=== PATIENT | male | born 1960 | race Caucasian/White ===

== ENCOUNTER 2025-05-30 07:20 | Inpatient (IN) | payer OTHER, MEDICARE ==
[~2025-05-30] VITALS: Ht 180.3 cm; Wt 94.6 kg
[2025-05-30] VITALS (26 sets, daily range): BP systolic 109–192; BP diastolic 62–105
[~2025-05-30 07:20] MED LIST: AMLO5 PO; BENA20 PO; CHLO25B PO; CYCL10 PO; METO50ER PO; MOME.1TO TOP
[2025-05-30] MEDS ORDERED: FentaNYL Citrate 50 MCG/ML 5 ML Injection ONE (07:37)
[2025-05-30] MEDS ORDERED: Midazolam HCl 1MG / ML 2ML Vial ONE (07:37)
[2025-05-30] MEDS ORDERED: Rocuronium Bromide 10 MG/ML 5ML Injection IV ONE (07:37)
[2025-05-30] MEDS ORDERED: Bupivacaine 0.25% Epi 1:200000 30 ML Vial ONE (07:41)
[2025-05-30] MEDS ORDERED: CeFAZolin Sodium 2,000 MG in NS 100 ML IV SCH (08:25)
--- NOTE | 2025-05-30 09:08 | NUR ---
History, Chart, Medications and Allergies reviewed before start of procedure. Patient up to Ambulate independently. Gait steady. Pre-Op teaching done. Pt verbalizes understanding. Patient confirms NPO status and agrees with scheduled surgery. Patient reports completing Chlorhexadine shower X2 prior to admission to hospital. Surgical site prepped with 2% Chlorhexidine cloth wipe.
[2025-05-30] MEDS ORDERED: Labetalol HCL 5 MG/ML 4ML Injection (Single Dose) IV PRN (09:55)
[2025-05-30] MEDS ORDERED: Ondansetron HCl 2 MG / ML 2ML Vial IV PRN ×2 (09:55→11:45)
[2025-05-30] MEDS ORDERED: Albuterol 2.5 MG/3 ML VIAL INH PRN (09:55)
[2025-05-30] MEDS ORDERED: HYDROmorphone HCl/Pf 1MG SYR IV PRN (10:00)
[2025-05-30] MEDS ORDERED: FentaNYL Citrate 50 MCG/ML 2 ML Injection IV PRN ×3 (10:00)
[2025-05-30] MEDS ORDERED: HYDROmorphone HCl/Pf 1MG SYR ONE ×2 (10:17→13:07)
[2025-05-30] MEDS ORDERED: Sugammadex Sodium 200 MG/2ML SDV (100 MG/ML) ONE (11:45)
[2025-05-30] MEDS ORDERED: Morphine Sulfate 4 MG/1 ML Injection IV PRN (11:45)
[2025-05-30] MEDS ORDERED: OxyCODONE 5 mg/Acetamin 325 mg TABLET PO PRN (11:45)
[2025-05-30] MEDS ORDERED: Labetalol HCL 5 MG/ML 4ML Injection (Single Dose) ONE (12:26)
[2025-05-30] MEDS ORDERED: FentaNYL Citrate 50 MCG/ML 2 ML Injection ONE (12:26)
--- NOTE | 2025-05-30 17:27 | NUR ---
SUMMARY NO ACUTE CHANGES SINCE ARRIVING TO UNIT FROM PACU. PT REPORTS PAIN TOLERABLE. IV FLUIDS INFUSING PER ORDERS. TOLERATING CLEAR LIQUID DIET. KENYON PUTTING OUT DARK PINKISH URINE TO GRAVITY. PT RESTING IN BED, CALL LIGHT IN REACH.
[2025-05-31 05:24] VITALS: BP 142/83
[2025-05-31 07:13] VITALS: BP 145/74
[2025-05-31 07:14] VITALS: BP 145/74
--- NOTE | 2025-05-31 08:02 | NUR ---
PATIENT UP TO CHAIR IN ROOM AND REQUESTING REGULAR FOOD.RN NOTIFIED
--- NOTE | 2025-05-31 14:22 | NUR ---
DISCHARGE: PACKET PRINTED AND PT EDUCATED. PT EDUCATED ON CATHETER CARE, SENT HOME WITH SUPPLIES. PT REPORTS SCRIPTS ALREADY FILLED. PT LEFT UNIT AT ABOUT 1315 WITH FAMILY VIA WHEELCHAIR
== END 2025-05-31 13:15 | disposition home or self-care (01) | DRG 708 ==
LOC: ORSCMMR 07:20 → ORD 09:00 → ORSCMMR 09:00 → SURS 11:44 → ORSCMMR 11:44 → SURS 11:45
PROVIDERS: ADMIT Urology
PROC: 0VT04ZZ Resection of Prostate, Percutaneous Endoscopic Approach (ICD-10-PCS; principal; 2025-05-31)
PROC: 0VT34ZZ Resection of Bilateral Seminal Vesicles, Percutaneous Endoscopic Approach (ICD-10-PCS; 2025-05-31)
PROC: 07BC4ZZ Excision of Pelvis Lymphatic, Percutaneous Endoscopic Approach (ICD-10-PCS; 2025-05-31)
PROC: 0TQD4ZZ Repair Urethra, Percutaneous Endoscopic Approach (ICD-10-PCS; 2025-05-31)
PROC: 0VBQ4ZZ Excision of Bilateral Vas Deferens, Percutaneous Endoscopic Approach (ICD-10-PCS; 2025-05-31)
PROC: 8E0W4CZ Robotic Assisted Procedure of Trunk Region, Percutaneous Endoscopic Approach (ICD-10-PCS; 2025-05-31)
DX: C61 Malignant neoplasm of prostate (principal); I10 Essential (primary) hypertension
CPT/HCPCS: 88304; 88305; 88309; A4346; A9270; J0690; J1171; J2250; J2270; J2704; J3010; J7120

== ENCOUNTER 2025-06-07 21:30 | Emergency (ER) | payer OTHER, MEDICARE ==
[~2025-06-07] VITALS: Ht 180.3 cm; Wt 93.0 kg
[2025-06-08] MEDS ORDERED: Lidocaine 2% Jelly Uro-Jet UR ONE (02:50)
[2025-06-08] MEDS ORDERED: CEPH500 PO (02:52)
== END 2025-06-08 02:58 | disposition home or self-care (01) ==
LOC: ER 21:30
DX: N34.2 Other urethritis (principal); Z79.899 Other long term (current) drug therapy
CPT/HCPCS: 99284; A9270